=== PATIENT | male | born 1990 ===

== ENCOUNTER 2019-10-30 14:32 | Emergency (ER) | payer MEDICAID ==
[~2019-10-30] VITALS: Ht 175.3 cm; Wt 79.0 kg
[2019-10-30] MEDS ORDERED: IPRATROPIUM BROMIDE (0.02%) 0.5MG/2.5ML NEB HHN STA (17:19)
[2019-10-30] MEDS ORDERED: ALBUTEROL (0.083%) 2.5MG/3ML NEB HHN STA (17:19)
[2019-10-30] MEDS ORDERED: PREDNISONE 20MG TABLET PO STA (17:19)
[2019-10-30 20:09] VITALS: BP 135/82
== END 2019-10-30 20:11 | disposition home or self-care (01) ==
LOC: ER 14:32
DX: J20.9 Acute bronchitis, unspecified (principal); R06.2 Wheezing; F12.10 Cannabis abuse, uncomplicated
CPT/HCPCS: 71045; 94640; 99283; J7512; J7611; Z7610